=== PATIENT | female | born 1970 | race Caucasian/White ===

== ENCOUNTER 2016-09-27 13:39 | Inpatient (IN) | payer SELFPAY ==
[~2016-09-27] VITALS: Ht 165.1 cm; Wt 64.0 kg
[2016-09-27] MEDS ORDERED: LACTULOSE 20Gm/30ML SOLN PR ONE (14:15)
[2016-09-27 14:33] LABS: Hematocrit 30.7 % (36.0-46.0); Hemoglobin 10.4 g/dL (12.2-16.2); Mean Corpuscular Hemoglobin 30.8 pg (28.0-32.0); Mean Corpuscular Volume 90.6 fL (80.0-100.0); Mean Platelet Volume 9.7 fL (7.4-10.4); Platelet Count (auto) 220 10^3/uL (140-450); Red Cell Distribution Width 18.6 % (11.6-16.0); SUSPECT VIEW TRANSMISSION; White Blood Cell 21.6 10^3/uL (4.4-10.8)
[2016-09-27 14:40] LABS: Metamyelocytes % 0; Myelocytes % 0; Promyelocytes % 0; Reactive Lymphocytes 0
[2016-09-27 14:42] LABS: Urine Blood Negative /uL (Negative); Urine Color Brown (Yellow); Urine Glucose Normal (Normal); Urine Ketone Negative (Negative); Urine Mucus FEW (None Seen); Urine Nitrite Negative (Negative); Urine RBC 2 /hpf (0 - 4); Urine Squamous Epithelial Cell FEW /hpf (<5)
[2016-09-27 14:43] LABS: Partial Thromboplastin Time 67.1 sec (22.64-33.71)
[2016-09-27 14:44] LABS: INR 2.14 (0.9-1.15)
[2016-09-27 14:50] LABS: Lactic Acid w/Reflex 2.6 mmol/L (0.4-2.0)
[2016-09-27 14:53] LABS: Albumin 0.9 g/dL (3.4-5.0); Alkaline Phosphatase 183 U/L (45-117); Anion Gap 11 (5-15); Aspartate Aminotransferase 84 U/L (15-37); BUN/Creatinine Ratio 9.3; Bilirubin, Total 10.5 mg/dL (0.2-1.0); Blood Urea Nitrogen 19 mg/dL (7-18); Calcium 7.8 mg/dL (8.5-10.1); Carbon Dioxide 22 mmol/L (21-32); Chloride 106 mmol/L (98-107); GFR African American 33 mL/min; GFR Non-African American 28 mL/min; Glucose 53 mg/dL (74-106); Sodium 139 mmol/L (136-145); Total Protein 5.7 g/dL (6.4-8.2)
[2016-09-27 14:54] LABS: Urine Bilirubin 3+ (Negative)
[2016-09-27 14:58] LABS: Temperature: 22.8 C (20.0-25.0)
[2016-09-27 15:04] LABS: Platelet Estimate Adequate
[2016-09-27 15:06] LABS: REFLEX LACTIC ACID YES OR NO YES
[2016-09-27] MEDS ORDERED: SODIUM CHLORIDE 0.9% 1,000 ML IV ONE (15:24)
[2016-09-27] MEDS ORDERED: PIPERACILLIN-TAZOB 3.375GM 100 ML IV ONE (15:30)
[2016-09-27] MEDS ORDERED: metroNIDAZOLE 500MG/100ML 100 ML IV ONE (15:30)
[2016-09-27] MEDS ORDERED: ALBUMIN 5% 250 ML IV ONE (15:30)
[2016-09-27] MEDS ORDERED: SODIUM CHLORIDE 0.9% 1,000 ML IV SCH (16:28)
[2016-09-27] MEDS ORDERED: NITROGLYCERIN 0.4 MG SL TAB SL PRN (16:30)
[2016-09-27] MEDS ORDERED: cefTRIAXone 1GM/50ML D5W 50 ML IV ONE (16:30)
[2016-09-27] MEDS ORDERED: MORPHINE SULF INJ 2 MG/ML SYRINGE 1ML IV PRN (16:30)
[2016-09-27] MEDS ORDERED: ONDANSETRON HCL 4 MG/2 ML VIAL IV PRN (16:30)
[2016-09-27 16:39] LABS: Lactic Acid w/Reflex 2.3 mmol/L (0.4-2.0)
[2016-09-27] MEDS ORDERED: PHYTONADIONE (VIT K)10 MG/ML 1ML VIAL SUBCUT ONE (16:45)
[2016-09-27] MEDS ORDERED: LACTULOSE 20Gm/30ML SOLN ONE ×2 (16:58→16:59)
[2016-09-27 17:11] LABS: REFLEX LACTIC ACID YES OR NO YES
[2016-09-27] MEDS ORDERED: THIAMINE INJ 100 MG, MULTIPLE VITAMIN 10 ML, FOLIC ACID 1 MG, MAGNESIUM SULF SDV 50% 8 ... IV ONE ×5 (17:15)
[2016-09-27] MEDS ORDERED: LACTULOSE 20Gm/30ML SOLN PR SCH (18:00)
[2016-09-27 19:42] LABS: Lactic Acid w/Reflex 2.1 mmol/L (0.4-2.0)
[2016-09-27 19:51] LABS: REFLEX LACTIC ACID YES OR NO NO
[2016-09-27] MEDS ORDERED: FUROSEMIDE 40 MG/4 ML VIAL IV ONE (21:30)
[2016-09-27] MEDS ORDERED: ALBUMIN 25% 50 ML IV ONE (21:30)
[2016-09-27] MEDS: FAMOTIDINE (10MG/ML) 2ML VL IV SCH (21:43)
[2016-09-27] MEDS: metroNIDAZOLE 500MG/100ML 100 ML IV SCH (22:35)
[2016-09-28] MEDS: LACTULOSE 20Gm/30ML SOLN NG SCH ×3 (00:04→12:46)
[2016-09-28 05:00] VITALS: BP 95/54
[2016-09-28] MEDS: metroNIDAZOLE 500MG/100ML 100 ML IV SCH (06:14)
[2016-09-28 08:00] VITALS: BP 108/56
[2016-09-28 08:24] LABS: Hematocrit 26.5 % (36.0-46.0); Mean Corpuscular Hemoglobin 30.6 pg (28.0-32.0); Mean Corpuscular Hgb Conc. 33.9 g/dL (32.0-36.0); Mean Corpuscular Volume 90.2 fL (80.0-100.0); Mean Platelet Volume 9.1 fL (7.4-10.4); Platelet Count (auto) 195 10^3/uL (140-450); Red Cell Distribution Width 18.9 % (11.6-16.0); SUSPECT VIEW TRANSMISSION
[2016-09-28 08:48] LABS: Metamyelocytes % 0; Myelocytes % 0; Promyelocytes % 0; Reactive Lymphocytes 0
[2016-09-28 08:58] LABS: Albumin 1.2 g/dL (3.4-5.0); BUN/Creatinine Ratio 9.1; Bilirubin, Total 9.9 mg/dL (0.2-1.0); Calcium 7.8 mg/dL (8.5-10.1); Potassium 4.1 mmol/L (3.5-5.1)
[2016-09-28] MEDS ORDERED: cefTRIAXone 1GM/50ML D5W 50 ML IV SCH (09:00)
[2016-09-28] MEDS: FAMOTIDINE (10MG/ML) 2ML VL IV SCH (10:06)
[2016-09-28] MEDS ORDERED: SODIUM CHLORIDE 0.9% 1,000 ML IV ONE (10:30)
[2016-09-28 11:49] VITALS: BP 101/57
[2016-09-28 12:02] LABS: Hypochromia Moderate; Platelet Clumps FEW; Platelet Estimate Adequate
[2016-09-28] MEDS: ALBUMIN 25% 100 ML IV SCH ×2 (12:32→13:35)
[2016-09-28] MEDS ORDERED: LORazepam 2MG/ML-1ML VIAL IV PRN (13:15)
[2016-09-28] MEDS ORDERED: CEFEPIME HYDROCHLORIDE 2 GM in D5W 5% 50 ML IV SCH (14:00)
[2016-09-28 15:56] VITALS: BP 71/50
[2016-09-28 20:34] VITALS: BP 82/58
[2016-09-28 23:37] VITALS: BP 82/58
[2016-09-29 08:08] VITALS: BP 77/47
[2016-09-29 09:00] VITALS: BP 77/47
[2016-09-29] MEDS ORDERED: CEFEPIME HYDROCHLORIDE 2 GM in D5W 5% 50 ML IV SCH (10:00)
[2016-09-29] MEDS ORDERED: FAMOTIDINE (10MG/ML) 2ML VL IV SCH (10:00)
[2016-09-29] MEDS: MORPHINE SULF INJ 2 MG/ML SYRINGE 1ML IV PRN (12:39)
[2016-09-30] MEDS: MORPHINE SULF INJ 2 MG/ML SYRINGE 1ML IV PRN (09:31)
== END 2016-09-30 13:17 | disposition hospice, home (50) | DRG 871 ==
LOC: ER 13:39 → TELE 13:40 → DOU IN ICU 09-28 04:49 → EAST 09-28 20:20
PROVIDERS: ADMIT Internal Medicine; ATTEND Internal Medicine
DX: A41.9 Sepsis, unspecified organism (principal); E43 Unspecified severe protein-calorie malnutrition; G93.41 Metabolic encephalopathy; K83.1 Obstruction of bile duct; N18.4 Chronic kidney disease, stage 4 (severe); N39.0 Urinary tract infection, site not specified; D68.9 Coagulation defect, unspecified; J98.11 Atelectasis; J90 Pleural effusion, not elsewhere classified; K76.6 Portal hypertension; K72.90 Hepatic failure, unspecified without coma; B96.20 Unspecified Escherichia coli [E. coli] as the cause of diseases classified elsewhere; R65.20 Severe sepsis without septic shock; Z66 Do not resuscitate; Z51.5 Encounter for palliative care; F10.10 Alcohol abuse, uncomplicated; R91.8 Other nonspecific abnormal finding of lung field; K70.31 Alcoholic cirrhosis of liver with ascites; F19.90 Other psychoactive substance use, unspecified, uncomplicated; D63.8 Anemia in other chronic diseases classified elsewhere; E83.51 Hypocalcemia; Z82.49 Family history of ischemic heart disease and other diseases of the circulatory system; Z83.3 Family history of diabetes mellitus; Z68.23 Body mass index [BMI] 23.0-23.9, adult
CPT/HCPCS: 36415; 51702; 70450; 71010; 76700; 80053; 80320; 81001; 82140; 82150; 83605; 83690; 83880; 84484; 85007; 85027; 85610; 85730; 86850; 86900; 86901; 87040; 87081; 87086; 87088; 87186; 93005; 96365; 96366; 96368; 96372; 99291; J0696; J2405; J2543; J3430; J3490; J7060